=== PATIENT | male | born 1945 | race Caucasian/White ===

== ENCOUNTER 2019-08-11 09:10 | Day surgery (SDC) | payer MEDICARE, OTHER, SELFPAY ==
--- NOTE | 2019-08-11 | PATH_ITS ---
[facility] Accession Number: [id number] . 01 Material submitted: . PART A: cecum - CECUM POLYP PART B: colon - DESCENDING COLON POLYP . 02 Diagnosis: A. Cecum, Polyp: Tubular adenoma. . B. Descending Colon, Polyp: Tubular adenoma. MRV 08/12/2019 1010 Local . 02 Electronically signed: . Zach Eagle MD, PhD, Pathologist NPI- [id number] . 01 Gross description: . Part A: CECUM POLYP: Received in formalin is 1 fragment(s) of salomon, soft tissue measuring 0.3 x 0.2 x 0.2 cm submitted entirely in 1 cassette(s) Part B: DESCENDING COLON POLYP: Received in formalin is 1 fragment(s) of salomon, soft tissue measuring 0.6 x 0.3 x 0.3 cm submitted entirely in 1 cassette(s) /[facility] [place]/11/2019 2042 Local . 02 Pathologist provided ICD-10: D12.0, D12.4 . 02 CPT . 469900, 080838 Performed at: 01 [facility] [address], [place], [place] [id number] MD Ronen Meyer MD Phone: [phone] Performed at: 02 [facility] [address] [place], [place] [id number] MD Carmela Moran MD Phone: [phone]
[2019-08-11 10:04] VITALS: BP 135/84; PULSE 80; RESP 15; TEMP 36.3; O2SAT 96; BMI 25.8
[2019-08-11] MEDS: SODIUM CHLORIDE 0.9% 1,000 ML 200 ML IV (10:10)
--- NOTE | 2019-08-11 10:37 | PM.HP.1 ---
History of Present Illness History of Present Illness Chief complaint: [id number] Patient History Family & Social History Social History: household members none Tobacco & Substance use: Smoking Status Never smoker alcohol intake current alcohol intake frequency 0-2 drinks per day Substance Use Type does not use Meds Home Medications and Allergies Home Medications Medication Instructions Recorded Confirmed Type allopurinol 300 mg PO DAILY 08/11/19 08/11/19 History levothyroxine [Synthroid] 125 mcg PO DAILY 08/11/19 08/11/19 History rosuvastatin [Crestor] 5 mg PO Q3-4D 08/11/19 08/11/19 History terazosin 5 mg PO BEDTIME 08/11/19 08/11/19 History Allergies Allergy/AdvReac Type Severity Reaction Status Date / Time lisinopril Allergy Rash Verified 08/11/19 10:02 Sulfa (Sulfonamide Allergy Rash Verified 08/11/19 10:02 Antibiotics) Review of Systems Review of Systems ROS: Yes All systems reviewed with the patient and are negative except as otherwise documented Exam Vital Signs (past 8 hours): - 08/11/19 10:04 Temperature 97.4 F L Pulse Rate 80 Respiratory Rate 15 Blood Pressure 135/84 Pulse Oximetry 96 Oxygen Delivery Method Room Air Narrative Exam Narrative: Awake alert and oriented x3, pupils equal round reactive to light, oropharynx clear, heart regular rate and rhythm, lungs clear to auscultation bilaterally, abdomen nontender and nondistended, no gross neurologic deficits noted Assessment & Plan Assessment & Plan narrative: History of colon polyps, colon cancer screening, for colonoscopy today
[2019-08-11] MEDS: MIDAZOLAM 5 MG/ML VIAL IV (10:45)
[2019-08-11] MEDS: fentaNYL 250 MCG/5 ML INJ IV (10:46)
--- NOTE | 2019-08-11 11:12 | PM.OP.ENDO ---
Operative Date/Time/Diagnoses Date of procedure: 08/11/19 Procedure & Clinicians Study performed: Colonoscopy with cold snare polypectomy Moderate conscious sedation was administered by the endoscopy nurse and supervised by the endoscopist. The following parameters were monitored: Oxygen saturation, heart rate, blood pressure, and response to care. Sedation totals: 4 mg midazolam, 100 mcg fentanyl Indications: Personal history of colon polyps. Colon cancer screening Procedure Notes Procedure in detail: Prior to the procedure, history and physical was performed, and patient medications and allergies were reviewed. Preprocedure nursing history and assessment was reviewed. Patient identification and proposed procedure were verified by the physician and nurse in the procedure room. The physical status of the patient was reassessed after the procedure. After informed consent was obtained including risks, benefits, and alternatives, the scope was passed under direct vision. Throughout the procedure, the patient's blood pressure, pulse, and oxygen saturations were monitored continuously. The colonoscope was introduced through the anus and advanced to the cecum as identified by the appendiceal orifice and ileocecal valve. The patient tolerated the procedure well. Bowel prep was deemed adequate to detect polyps greater than 5 mm. Perianal and digital rectal examinations were unremarkable. Retroflexion in the rectum was unrevealing Scattered medium-sized diverticuli were noted in the sigmoid colon. Two 5 mm sessile polyps were noted in the cecum and descending colon, respectively. These were removed with a cold snare and retrieved. Impression: Sigmoid colon diverticulosis Two 5 mm polyps removed from the cecum and descending colon Sedation minutes: 23 Complications: other (EBL minimal. No complications) Post-procedure Plan for aftercare: Follow-up pathology results Repeat colonoscopy in 5 years for screening purposes Resume home medications High fiber diet Patient has a contact number available for emergencies. The signs and symptoms of potential delayed complications were discussed with the patient. Return to normal activities tomorrow. Written discharge instructions were provided to the patient. Discharge home with escort
[2019-08-11 11:13] VITALS: BP 108/75; PULSE 76; RESP 16; TEMP 36.4; O2SAT 96
[2019-08-11 11:18] VITALS: BP 117/83; PULSE 93; RESP 15; O2SAT 97
[2019-08-11 11:22] VITALS: BP 131/89; PULSE 86; RESP 11; O2SAT 96
[2019-08-11 11:35] VITALS: BP 124/84; PULSE 72; RESP 16; TEMP 36.5; O2SAT 96
== END 2019-08-11 11:50 | disposition home or self-care (01) ==
PROVIDERS: Referring Provider Internal Medicine; Visit Provider Internal Medicine
PROC: 0DJD8ZZ Inspection of Lower Intestinal Tract, Via Natural or Artificial Opening Endoscopic (ICD-10-PCS; CPT 45378; principal; 2019-08-11 11:00)
DX: Z12.11 Encounter for screening for malignant neoplasm of colon (principal); Z86.010 Personal history of colon polyps; K57.30 Diverticulosis of large intestine without perforation or abscess without bleeding; D12.0 Benign neoplasm of cecum; D12.4 Benign neoplasm of descending colon
CPT/HCPCS: 45385; J2250; J3010

== ENCOUNTER → 2020-04-21 13:14 | Outpatient (CLI) | payer MEDICARE, OTHER, SELFPAY ==
[2020-04-22 06:57] LABS: Homocysteine 18.4 umol/L (0.0-19.2)
== END ==
PROVIDERS: Referring Provider Ophthalmology; Visit Provider Ophthalmology
DX: H27 Other disorders of lens (principal); I10 Essential (primary) hypertension
CPT/HCPCS: 36415; 83090

== ENCOUNTER → 2021-01-22 17:15 | Outpatient (CLI) | payer MEDICARE, OTHER, SELFPAY ==
--- NOTE | 2021-01-22 | DI.MRI.S_ITS ---
PROCEDURE: MR HAND RT WO CON INDICATIONS: right thumb strain TECHNIQUE: Noncontrast oblique coronal T1 spin echo and T2 fast spin echo with fat saturation, axial and sagittal T2 fast spin echo with fat saturation, through the thumb. COMPARISON: [facility], CR, XR HAND 3+ VIEWS RIGHT, 11/08/2019, 8:40. [facility] [place], CR, XR FINGER(S) RIGHT, 01/15/2021, 15:17. FINDINGS: Image quality: Excellent. Bones: No acute trabecular bone injury. Severe degenerative changes are seen at the 1st carpometacarpal joint with full-thickness cartilage loss, subchondral cystic changes that are more prominent on the metacarpal side of the joint, and subchondral edema as well as marginal osteophyte formation. Moderate degenerative changes are seen in the 1st metacarpophalangeal joint with eccentric joint space narrowing, subchondral cystic changes, and marginal osteophyte formation. There is moderate to severe osteoarthrosis at the 1st interphalangeal joint with full-thickness cartilage loss, subchondral cystic changes, and marginal osteophyte formation as well as mild chronic medial subluxation of the distal phalanx. Soft tissues: Mildly increased signal is seen within the ulnar collateral ligament at the 1st metacarpophalangeal joint without discontinuity of fibers, which may represent a prior sprain or mild chronic degeneration. Similar findings are seen at the volar plate without definite discontinuity of fibers. The extensor pollicis brevis insertion is intact. At the 1st interphalangeal joint, there is increased signal intensity within the radial and ulnar collateral ligaments without a high-grade tear. The flexor pollicis longus tendon insertion is intact. There is trace edema at the dorsal aspect of the thumb in fluid surrounding the distal extensor pollicis longus tendon that is suspicious for tenosynovitis. A small amount of fluid is seen tracking along the flexor pollicis longus tendon at the level of the thenar musculature and proximal phalanx, compatible with mild tenosynovitis. There is also mild tenosynovitis involving the 2nd flexor tendons. The muscles of the hand are normal in bulk. The included carpal tunnel contents appear normal. IMPRESSION: 1. 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 2. Increased signal within multiple ligaments in the thumb without discontinuity of fibers or surrounding edema, including the ulnar collateral ligament and the volar plate at the metacarpophalangeal joint, and the radial and ulnar collateral ligaments at the distal interphalangeal joint. Findings likely represent chronic intrasubstance degeneration and/or chronic low-grade sprains. No full-thickness ligament tear is seen. 3. Mild tenosynovitis of the flexor pollicis longus tendon as well as the 2nd superficial and deep flexor tendons. 4. Mild tenosynovitis of the extensor pollicis longus tendon at its insertion. Dictated by: Royce Kirby M.D. on 01/23/2021 at 16:47 Approved by: Royce Kirby M.D. on 01/23/2021 at 17:00
== END ==
PROVIDERS: Referring Provider Orthopaedic Surgery; Visit Provider Orthopaedic Surgery
DX: S66.811A Strain of other specified muscles, fascia and tendons at wrist and hand level, right hand, initial encounter (principal); M18.11 Unilateral primary osteoarthritis of first carpometacarpal joint, right hand; M19.041 Primary osteoarthritis, right hand; M65.841 Other synovitis and tenosynovitis, right hand; X58.XXXA Exposure to other specified factors, initial encounter
CPT/HCPCS: 73218

== ENCOUNTER → 2021-03-21 08:28 | Outpatient (CLI) | payer MEDICARE, OTHER, SELFPAY ==
[2021-03-21 13:31] LABS: COVID19 -Nasal RAPID Negative (Negative)
== END ==
PROVIDERS: Visit Provider Physician Assistant
DX: Z20.822 Contact with and (suspected) exposure to COVID-19 (principal); Z01.812 Encounter for preprocedural laboratory examination
CPT/HCPCS: 87635; C9803

== ENCOUNTER → 2021-03-22 12:03 | Day surgery (SDC) | payer MEDICARE, OTHER, SELFPAY ==
[2021-03-19 07:58] VITALS: BMI 25.8
[2021-03-22] VITALS (7 sets, daily range): BP systolic 101–128; BP diastolic 60–79; PULSE 74–83; RESP 11–18; TEMP 36.4–36.9; O2SAT 95–97; BMI 25.8
[2021-03-22] MEDS: LACTATED RINGERS 1,000 ML 42 ML IV (13:04)
--- NOTE | 2021-03-22 13:30 | PM.HP.1 ---
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 Patient History Medical History Gout HLD (hyperlipidemia) HTN (hypertension) Hypothyroid Surgical History History of knee replacement Hx of shoulder surgery Family & Social History Social History: household members spouse,none Tobacco & Substance use: Smoking Status Never smoker alcohol intake current alcohol intake frequency 0-2 drinks per day Substance Use Type does not use Meds Home Medications and Allergies Home Medications Medication Instructions Recorded Confirmed Type allopurinol 300 mg tablet 300 mg PO DAILY 08/11/19 03/22/21 History levothyroxine 125 mcg tablet 125 mcg PO DAILY 08/11/19 03/22/21 History (Synthroid) terazosin 5 mg capsule 5 mg PO BEDTIME 08/11/19 03/22/21 History Allergies Allergy/AdvReac Type Severity Reaction Status Date / Time lisinopril Allergy Rash Verified 03/22/21 12:27 Sulfa (Sulfonamide Allergy Rash Verified 03/22/21 12:27 Antibiotics) Exam Vital Signs (past 8 hours): - 03/22/21 12:33 Temperature 98.3 F Pulse Rate 83 Respiratory Rate 18 Blood Pressure 124/79 Pulse Oximetry 97 Oxygen Delivery Method Room Air Assessment & Plan Time Spent With Patient Critical Care time: I spent a total of [] minutes of critical care time on this patient's care today; this time is exclusive of procedural time.
--- NOTE | 2021-03-22 13:38 | PM.HP.1 ---
History of Present Illness History of Present Illness Date Patient Seen: 03/22/21 Time Patient Seen: 13:39 Chief complaint: SDC Narrative: Chronic injury to the right thumb MCP joint resulting in a ulnar collateral ligament rupture Patient History Medical History Gout HLD (hyperlipidemia) HTN (hypertension) Hypothyroid Surgical History History of knee replacement Hx of shoulder surgery Family & Social History Social History: household members spouse,none Tobacco & Substance use: Smoking Status Never smoker alcohol intake current alcohol intake frequency 0-2 drinks per day Substance Use Type does not use Meds Home Medications and Allergies Home Medications Medication Instructions Recorded Confirmed Type allopurinol 300 mg tablet 300 mg PO DAILY 08/11/19 03/22/21 History levothyroxine 125 mcg tablet 125 mcg PO DAILY 08/11/19 03/22/21 History (Synthroid) terazosin 5 mg capsule 5 mg PO BEDTIME 08/11/19 03/22/21 History Allergies Allergy/AdvReac Type Severity Reaction Status Date / Time lisinopril Allergy Rash Verified 03/22/21 12:27 Sulfa (Sulfonamide Allergy Rash Verified 03/22/21 12:27 Antibiotics) Exam Vital Signs (past 8 hours): - 03/22/21 12:33 Temperature 98.3 F Pulse Rate 83 Respiratory Rate 18 Blood Pressure 124/79 Pulse Oximetry 97 Oxygen Delivery Method Room Air Narrative Exam Narrative: Instability to the right thumb MCP joint due to a chronically insufficient ulnar collateral ligament. Range of motion of the MCP joint as well as basal joint in flexion as well as extension. Assessment & Plan Assessment & Plan narrative: Patient with a chronically injured right thumb ulnar collateral ligament. Due to this fact patient is interested in a ulnar collateral ligament reconstruction. All of his questions and concerns are answered to his full satisfaction. The risk, benefits, alternatives, possible complications, operative course, and postop outcomes were discussed. Complications including but not limiting to bleeding, infection, fracture, nerve injury, continued pain postoperatively or instability postoperatively were discussed in detail. Medical complications including but not limited to deep venous thrombosis event, anesthesia complications with excessive bleeding, vascular events or cardiac events and other possible complications were discussed in detail. Need for postoperative rehabilitation and anticipated hospital stay and clinical course were discussed in detail. Patient acknowledges understanding and elects to proceed with surgery. Time Spent With Patient Critical Care time: I spent a total of [] minutes of critical care time on this patient's care today; this time is exclusive of procedural time.
--- NOTE | 2021-03-22 13:40 | PM.PREOP ---
Pre-operative Note Interval Note History & Physical reviewed/Exam performed by Physician: Yes Changes to H&P: No
[2021-03-22] MEDS: CEFAZOLIN 1 GM VIAL 2 GM IV (14:37)
[2021-03-22] MEDS: EPINEPHrine 1 MG/ML SUBCUT (14:53)
[2021-03-22] MEDS: BUPIVACAINE 0.5% (PF) VIAL 30 ML INJ (14:56)
--- NOTE | 2021-03-22 15:03 | SUR.OPER ---
Supine on padded OR bed, head on pillow, left arm secured on padded arm boards at <90 degrees abduction,right arm draped free on black hand table, legs uncrossed, safety belt at thigh, tape over blanket over lower legs.
--- NOTE | 2021-03-22 15:28 | PM.OP.1 ---
Operative Date/Time/Diagnoses Date of procedure: 03/22/21 Time of procedure: 14:45 Pre-op diagnosis: Right thumb ulnar collateral ligament injury Post-op diagnosis: same Procedure & Clinicians Procedure: Ulnar collateral ligament repair with augmentation with suture material to help reconstruct the ligament. 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 Closure Type: primary Specimen(s): none sent Applied: implant(s) (Three anchors. Two in the proximal phalanx 1 in the metacarpal.) Procedure in detail: On date of Service, patient was met in the holding area where his operative site was signed and witnessed by the OR staff. The surgery is once again discussed with the patient in remaining questions or concerns he had were answered to his full satisfaction. Patient was taken back to the operating theater and placed on the operating table in a supine position. Great care was taken to ensure that all bony prominences were appropriately padded. Well-padded tourniquet was placed up along the upper extremity and a time-out was performed verifying patient's name, procedure and operative site. The upper extremity was prepped and draped in the normal sterile fashion. And Esmarch was used to exsanguinate the limb and the tourniquet was turned up to 250 mmHg. Curvilinear incision was made centered over the ulnar aspect of the MCP joint. A 15 blade was used incise the skin and fascial tissue. Bipolar electrocautery was used to achieve hemostasis. Deep knife was then used to continued sharp dissection and the aponeurosis was split giving us a good visualization of the ulnar collateral ligament. Quite a bit of thinning at the attachment at the proximal phalanx but not a complete rupture. Signs of some pseudo tendinous material. This was sharply dissected free of the proximal phalanx in the thinner more unhealthy tissue was sharply excised. Next, corkscrew anchor was placed in the proximal phalanx that had 2.0 FiberWire suture. This was used to repair the ulnar collateral ligament back down to the proximal phalanx. This helped improve the laxity that due to the chronic nature and felt like it needed to be reinforced. Two drill holes were made 1 in the proximal phalanx 1 in the metacarpal. Suture material was tenodesed 1st in the metacarpal brought across the joint and then tenodesed in the proximal phalanx under tension. This help secure the ulnar collateral ligament tissue onto the proximal phalanx as well as provide additional support to the ligament. This got rid of the excess laxity to the MCP joint and help stabilize the joint. The wound was then copiously irrigated. Aponeurosis was closed in the rest of the wound was closed in a layered fashion. The hand was cleaned, dried, and dressed and patient was placed into a splint. Complications: none Post-operative Condition: stable Disposition: PACU Plan for aftercare: Patient will be immobilized for 2 weeks. Then he will be converted over to a hand based splint.
== END | disposition home or self-care (01) ==
PROVIDERS: Referring Provider Orthopaedic Surgery; Visit Provider Orthopaedic Surgery
PROC: (CPT 26540; principal; 2021-03-22 13:45)
DX: S63.641A Sprain of metacarpophalangeal joint of right thumb, initial encounter (principal); M18.11 Unilateral primary osteoarthritis of first carpometacarpal joint, right hand; I10 Essential (primary) hypertension
CPT/HCPCS: 26540; J0171; J0690; J1100; J2250; J2405; J2704; J3010

== ENCOUNTER → 2021-04-30 15:37 | Outpatient (CLI) | payer MEDICARE, OTHER, SELFPAY | PROVIDERS: Referring Provider Internal Medicine; Visit Provider Internal Medicine | DX: E06.3 Autoimmune thyroiditis (principal) | CPT/HCPCS: 36415; 84443 ==

== ENCOUNTER → 2021-06-26 09:22 | Outpatient (CLI) | payer MEDICARE, OTHER, SELFPAY ==
--- NOTE | 2021-06-26 | DI.MRI.S_ITS ---
PROCEDURE: MR HIP RT WO CON INDICATIONS: Idiopathic aseptic necrosis of unspecified bone TECHNIQUE: Noncontrast coronal T1 spin echo and STIR through the bony pelvis. Coronal and axial T2 fast spin echo with fat saturation, sagittal T1 spin echo, and oblique axial T2 fast spin echo with fat saturation through the hip. COMPARISON: [facility], CR, XR PELVIS WITH LATERAL HIP RIGHT, 05/23/2021, 10:04. FINDINGS: Image quality: Excellent. Bones and joints: Mild periarticular osteophyte formation at the bilateral hip joints. Bone marrow of the pelvic ring and proximal femurs show normal signal throughout. There is geographic curvilinear low T1 signal intensity involving the anterior aspect of the right femoral head, spanning roughly 15 mm. The visualized lower lumbar spine appears normally aligned. Tendons and ligaments: The gluteus medius and minimus tendons appear intact, without associated muscle atrophy. The nearby proximal iliotibial band also appears intact. The iliopsoas tendon appears intact, without adjacent bursal fluid collections or evidence for impingement syndrome. The origin of the hamstring tendon is intact at the ischial tuberosity, as well as the associated sacrotuberous ligament. The straight and reflected heads of the rectus femoris muscle origin appear intact, as well as the conjoint tendon. The ligamentum teres appears intact where visualized. Labrum and cartilage: The acetabular labrum demonstrates diffuse fraying. Cartilage surface of the femoral head appears of normal thickness. The alpha angle of the femur is within normal limits at less than 55 degrees. Soft tissues: Visualized muscles demonstrate normal bulk and internal signal. Quadratus femoris muscle demonstrates no internal edema to suggest ischiofemoral impingement. The proximal sciatic neurovascular bundle appears normal adjacent to the hamstring tendons. No free pelvic fluid. Bladder wall thickness is normal. Genitourinary structures and bowel loops appear normal where visualized. IMPRESSION: 1. 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 2. Bilateral hip osteoarthritis. 3. Degenerative tearing of right hip labrum. 4. No fracture or osseous lesion. Dictated by: Tatiana Live M.D. on 06/26/2021 at 13:32 Approved by: Tatiana Live M.D. on 06/26/2021 at 13:39
== END ==
PROVIDERS: Referring Provider Orthopaedic Surgery; Visit Provider Orthopaedic Surgery
DX: M87.851 Other osteonecrosis, right femur (principal); M16.0 Bilateral primary osteoarthritis of hip; S73.101A Unspecified sprain of right hip, initial encounter
CPT/HCPCS: 73721

== ENCOUNTER → 2021-10-23 07:53 | Outpatient (CLI) | payer MEDICARE, OTHER, SELFPAY ==
[2021-10-23 09:56] LABS: Add Manual Diff / Slide Review NO; Basophils Absolute Auto 0 /uL (0-100); Basophils Percent Auto 0.6 % (0-2); Eosinophils Absolute Auto 100 /uL (0-450); Eosinophils Percent Auto 2.7 % (2-4); Hematocrit 46.7 % (41-53); Hemoglobin 15.8 g/dL (13.5-17.5); Lymphocytes Absolute Auto 1400 /uL (1100-4500); Lymphocytes Percent Auto 26.8 % (25-40); Mean Corpuscular HGB Conc 33.9 % (30-36); Mean Corpuscular Hemoglobin 32.3 PG (26-34); Mean Corpuscular Volume 95.2 fL (80-100); Monocytes Absolute Auto 500 /uL (0-900); Monocytes Percent Auto 10.4 % (3-14); Neutrophils Absolute Auto 3000 /uL (1500-7000); Neutrophils Percent Auto 59.5 % (50-75); Platelet Count 180 X10^3/uL (150-400); Red Cell Distribution Width 15.6 % (11.6-14.8); White Blood Cell Count 5.1 X10^3/uL (4.5-11.0)
[2021-10-23 10:12] LABS: Erythrocyte Sedimentation Rate 1 MM/HR (0-15)
[2021-10-23 10:39] LABS: Alanine Aminotransferase 28 IU/L (<50); Albumin 3.7 g/dL (3.5-5.0); Albumin Globulin Ratio 1.3 (1.0-2.8); Alkaline Phosphatase 76 U/L (38-126); Aspartate Aminotransferase 33 IU/L (17-59); BUN Creatinine Ratio 16.5 (6-22); Bilirubin Total 0.9 mg/dL (0.2-1.3); Blood Urea Nitrogen 16 mg/dL (9-20); C-Reactive Protein Quant < 0.5 mg/dL (<1.0); Carbon Dioxide 29 mmol/L (22-32); Chloride 104 mmol/L (98-107); Cholesterol 171 mg/dL (140-199); Estimated Glomerular Filt Rate > 60 mL/min (>60); Globulin 2.8 g/dL (1.7-4.1); Glucose 95 mg/dL (80-110); HDL Cholesterol 72 mg/dL (40-60); HEMOLYSIS < 15 (0-50); LDL Cholesterol Calculated 87 mg/dL (<100); Potassium 4.1 mmol/L (3.4-5.1); Sodium 139 mmol/L (137-145); Total Protein 6.5 g/dL (6.3-8.2); Triglycerides 58 mg/dL (35-150); Uric Acid 3.8 mg/dL (3.5-8.5)
[2021-10-23 10:44] LABS: Free T4, Direct Thyroxine 1.29 ng/dL (0.78-2.19); Rheumatoid Factor < 8.6 IU/mL (<12.0)
[2021-10-23 10:58] LABS: Thyroid Stimulating Hormone 2.36 uIU/mL (0.47-4.68)
[2021-10-26 14:52] LABS: ANA Screen, IFA Negative (.)
[2021-11-01 13:11] LABS: Percent Free Testosterone 2.79 % (1.50-4.20); Testosterone Free 8.63 ng/dL (5.00-21.00); Testosterone Total 309.3 ng/dL (264.0-916.0)
== END ==
PROVIDERS: PCP Internal Medicine; Referring Provider Internal Medicine; Visit Provider Internal Medicine
DX: L40.50 Arthropathic psoriasis, unspecified (principal); Z12.5 Encounter for screening for malignant neoplasm of prostate; M1A.9XX0 Chronic gout, unspecified, without tophus (tophi); M25.50 Pain in unspecified joint; E03.9 Hypothyroidism, unspecified; E29.1 Testicular hypofunction; I10 Essential (primary) hypertension
CPT/HCPCS: 36415; 80053; 80061; 84402; 84403; 84439; 84443; 84550; 85025; 85651; 86038; 86140; 86430; G0103

== ENCOUNTER → 2021-10-25 15:54 | Outpatient (CLI) | payer MEDICARE, OTHER, SELFPAY ==
--- NOTE | 2021-10-25 | DI.MRI.S_ITS ---
PROCEDURE: MR WRIST RT WO CON INDICATIONS: Pain in right wrist TECHNIQUE: Noncontrast coronal proton density fast spin echo and T2 fast spin echo with fat saturation; coronal 3-D gradient echo, axial T1 spin echo and T2 fast spin echo with fat saturation, sagittal T1 spin echo through the wrist. COMPARISON: [facility], MR, MR HAND RT WO CON, 01/22/2021, 17:21. FINDINGS: Image quality: Excellent. Bones and cartilage: Moderate osteoarthritic changes throughout wrist joints are seen with joint space narrowing, subchondral sclerosis and mild edema most prominent involving radiocarpal, ulnar carpal and 1st CMC joints. Subcortical cystic areas also seen in distal radius, ulnar, triquetrum, proximal capitate and lunate as well as 1st metacarpal base. No fracture or dislocation. No evidence of osteonecrosis. Carpal ligaments: The scapholunate and lunotriquetral ligaments appear intact. In the absence of intra-articular contrast, the extrinsic carpal ligaments are not well identified. On sagittal images, the pisohamate ligament appears intact. Triangular fibrocartilage complex: There is suggestion of complex tear involving triangular fibrocartilage near its radial insertion. Thickened extensor carpi ulnaris tendon with intrasubstance T2 hyperintense signal is seen at the level of ulnar styloid and triquetrum suggestive of tendinosis and moderate grade intrasubstance partial-thickness tear. Tendons and soft tissues: Attenuated appearance of the extensor pollicis longus tendon at the level of proximal carpal Road is seen concerning for tendinosis and low to moderate grade partial-thickness tear. The carpal tunnel structures appear normal, including the median nerve. The ulnar nerve appears normal within Guyon's canal. Rest of the extensor tendon compartments demonstrate normal morphology, without pathologic tendon sheath fluid. No soft tissue ganglion cysts. IMPRESSION: 1. 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 No fracture or dislocation. No evidence of osteonecrosis. Subcortical cystic changes in carpal bones and distal radius and ulnar, erosion secondary to inflammatory arthropathy cannot be excluded. 2. Intrinsic and extrinsic wrist ligaments are grossly intact. 3. Suggestion of triangular fibrocartilage tear near its radial insertion. 4. Tendinosis and moderate grade intrasubstance partial-thickness tear involving extensor carpi ulnaris tendon at the level of ulnar styloid and triquetrum. Suggestion of low-grade partial-thickness tear involving extensor pollicis longus tendon at the level of distal radius/proximal carpal row. Dictated by: Jose C Senior M.D. on 10/26/2021 at 9:38 Approved by: Jose C Senior M.D. on 10/26/2021 at 10:58
== END ==
PROVIDERS: PCP Internal Medicine; Referring Provider Internal Medicine Rheumatology; Visit Provider Internal Medicine Rheumatology
DX: S66.811A Strain of other specified muscles, fascia and tendons at wrist and hand level, right hand, initial encounter (principal); M19.031 Primary osteoarthritis, right wrist; M25.531 Pain in right wrist
CPT/HCPCS: 73221

== ENCOUNTER → 2021-12-27 09:26 | Outpatient (CLI) | payer MEDICARE, OTHER, SELFPAY ==
--- NOTE | 2021-12-27 09:31 | DI.RAD.S_ITS ---
PROCEDURE: XR KNEE RT 3V INDICATIONS: PAIN TECHNIQUE: 3 views of the knee were acquired. COMPARISON: None. FINDINGS: Bones: No fractures or dislocations. No suspicious bony lesions. Mild to moderate medial compartment osteoarthritic degenerative change with slight joint space narrowing. Mild lateral and patellofemoral compartment osteoarthritis. Large superior patellar bone spur. Soft tissues: No joint effusion. No suspicious soft tissue calcifications. IMPRESSION: Right knee tricompartmental osteoarthritis as described above. Dictated by: Marguerite Lynch MD, PhD on 12/27/2021 at 14:15 Approved by: Marguerite Lynch MD, PhD on 12/27/2021 at 14:16
--- NOTE | 2021-12-27 09:31 | DI.RAD.S_ITS ---
PROCEDURE: XR KNEE LT 3V INDICATIONS: PAIN TECHNIQUE: 3 views of the knee were acquired. COMPARISON: None. FINDINGS: Bones: No fractures or dislocations. No suspicious bony lesions. Moderate medial compartment osteoarthritic degenerative changes with joint space narrowing. Mild lateral and patellofemoral compartment osteoarthritis. A large superior patellar bone spur. Soft tissues: No joint effusion. No suspicious soft tissue calcifications. IMPRESSION: Left knee tricompartmental osteoarthritis as described above. Dictated by: Marguerite Lynch MD, PhD on 12/27/2021 at 14:14 Approved by: Marguerite Lynch MD, PhD on 12/27/2021 at 14:15
== END ==
PROVIDERS: PCP Internal Medicine; Referring Provider Internal Medicine Rheumatology; Visit Provider Internal Medicine Rheumatology
DX: M17.0 Bilateral primary osteoarthritis of knee; M25.561 Pain in right knee; M25.562 Pain in left knee; Z13.820 Encounter for screening for osteoporosis; Z92.241 Personal history of systemic steroid therapy
CPT/HCPCS: 73562; 77080

== ENCOUNTER → 2022-06-27 13:15 | Outpatient (CLI) | payer MEDICARE, OTHER, SELFPAY ==
--- NOTE | 2022-06-27 13:17 | DI.RAD.S_ITS ---
PROCEDURE: XR CHEST 2V INDICATIONS: cough TECHNIQUE: 2 views of the chest were acquired. COMPARISON: None. FINDINGS: Surgical changes and devices: None. Lungs and pleura: Mildly increased bronchovascular markings in bilateral hilar region are seen. No definite focal infiltrate. No pleural effusions or pneumothorax. Mediastinum: Mediastinal contours are normal. Heart size is normal. Bones and chest wall: No suspicious bony abnormalities. Soft tissues appear unremarkable. IMPRESSION: Finding may represent mild reactive airway disease. No definite focal infiltrate, pleural effusion or pneumothorax. Dictated by: Jose C Senior M.D. on 06/27/2022 at 15:58 Approved by: Jose C Senior M.D. on 06/27/2022 at 16:01
== END ==
PROVIDERS: PCP Internal Medicine; Referring Provider Internal Medicine; Visit Provider Internal Medicine
DX: R05.9 Cough, unspecified (principal)
CPT/HCPCS: 71046

== ENCOUNTER → 2022-07-10 09:40 | Outpatient (CLI) | payer MEDICARE, OTHER, SELFPAY ==
[2022-07-10 10:19] LABS: COVID19 -Nasal RAPID Negative (Negative)
== END ==
PROVIDERS: PCP Internal Medicine; Referring Provider Internal Medicine; Visit Provider Internal Medicine
DX: Z20.822 Contact with and (suspected) exposure to COVID-19 (principal)
CPT/HCPCS: 87635; C9803

== ENCOUNTER → 2022-07-11 08:27 | Outpatient (CLI) | payer MEDICARE, OTHER, SELFPAY ==
--- NOTE | 2022-07-17 09:41 | PM.PFT.1 ---
Pulmonary Function Test Referral & Results Date Patient Seen: 07/11/22 Requesting provider: Deondre Santos Results: The spirometry demonstrates an FVC of 4.03 L which is 104% of predicted. The FEV1 was measured at 2.99 L which is 107% of predicted. The FEV1/FVC ratio was 74 which is 103% of predicted. Following the administration of bronchodilator there was a 50% improvement in FEF 25-75%. Lung volumes show an SVC of 4.04 L which is 96% of predicted. The diffusing capacity was measured at 27.39 which is 92% of predicted. The maximum voluntary ventilation was minimally reduced Interpretation: This study demonstrates normal spirometry and diffusing capacity. The maximum voluntary ventilation, if real, maybe minimally reduced which in the absence of abnormalities of spirometry suggest the possibility of neuromuscular disease, although would be quite mild if present Clinical correlation suggested
== END ==
PROVIDERS: PCP Internal Medicine; Referring Provider Internal Medicine; Visit Provider Internal Medicine
DX: R05.9 Cough, unspecified (principal); U09.9 Post COVID-19 condition, unspecified; R05.3 Chronic cough; J98.8 Other specified respiratory disorders
CPT/HCPCS: 94060; 94726; 94729

== ENCOUNTER → 2022-11-05 08:32 | Outpatient (CLI) | payer MEDICARE, OTHER, SELFPAY ==
[2022-11-05 09:31] LABS: Add Manual Diff / Slide Review NO; Basophils Absolute Auto 0 /uL (0-100); Basophils Percent Auto 0.7 % (0-2); Eosinophils Absolute Auto 200 /uL (0-450); Eosinophils Percent Auto 4.8 % (2-4); Hemoglobin 15.2 g/dL (13.5-17.5); Lymphocytes Absolute Auto 1300 /uL (1100-4500); Lymphocytes Percent Auto 27.7 % (25-40); Mean Corpuscular HGB Conc 33.7 % (30-36); Mean Corpuscular Hemoglobin 32.4 PG (26-34); Mean Corpuscular Volume 96.4 fL (80-100); Monocytes Absolute Auto 500 /uL (0-900); Monocytes Percent Auto 11.3 % (3-14); Neutrophils Absolute Auto 2700 /uL (1500-7000); Neutrophils Percent Auto 55.5 % (50-75); Platelet Count 217 X10^3/uL (150-400); Red Blood Cell Count 4.67 X10^6/uL (4.5-5.9); Red Cell Distribution Width 14.6 % (11.6-14.8); White Blood Cell Count 4.9 X10^3/uL (4.5-11.0)
[2022-11-05 09:45] LABS: Alanine Aminotransferase 31 IU/L (<50); Albumin Globulin Ratio 1.3 (1.0-2.8); Alkaline Phosphatase 77 U/L (38-126); Aspartate Aminotransferase 31 IU/L (17-59); BUN Creatinine Ratio 17.7 (6-22); Bilirubin Total 0.9 mg/dL (0.2-1.3); Blood Urea Nitrogen 17 mg/dL (9-20); Calcium 9.1 mg/dL (8.4-10.2); Carbon Dioxide 28 mmol/L (22-32); Chloride 102 mmol/L (98-107); Cholesterol 183 mg/dL (140-199); Estimated Glomerular Filt Rate > 60 mL/min (>60); Globulin 3.2 g/dL (1.7-4.1); Glucose 89 mg/dL (80-110); HDL Cholesterol 48 mg/dL (40-60); HEMOLYSIS < 15 (0-50); LDL Cholesterol Calculated 110 mg/dL (<100); Potassium 4.7 mmol/L (3.4-5.1); Sodium 135 mmol/L (137-145); Total Protein 7.2 g/dL (6.3-8.2); Triglycerides 125 mg/dL (35-150); Uric Acid 4.3 mg/dL (3.5-8.5)
[2022-11-05 09:48] LABS: Rheumatoid Factor < 8.6 IU/mL (<12.0)
[2022-11-05 10:06] LABS: Free T4, Direct Thyroxine 1.08 ng/dL (0.78-2.19)
[2022-11-05 10:09] LABS: Erythrocyte Sedimentation Rate 1 MM/HR (0-15)
[2022-11-05 10:13] LABS: Prostate Specific Antigen Scrn 1.68 ng/mL (0.1-4.0)
[2022-11-05 10:19] LABS: Thyroid Stimulating Hormone 1.73 uIU/mL (0.47-4.68)
[2022-11-10 18:22] LABS: ANA Screen, IFA Negative (.)
[2022-11-15 13:10] LABS: Testosterone % Fr + Wkly bound 30.8 % (9.0-46.0); Testosterone Fr+Wkly bound 185.3 ng/dL (40.0-250.0); Testosterone, Total 601.7 ng/dL (264.0-916.0)
== END ==
PROVIDERS: PCP Internal Medicine; Referring Provider Internal Medicine; Visit Provider Internal Medicine
DX: E03.9 Hypothyroidism, unspecified (principal); Z12.5 Encounter for screening for malignant neoplasm of prostate; E29.1 Testicular hypofunction; E78.2 Mixed hyperlipidemia; I10 Essential (primary) hypertension; M06.00 Rheumatoid arthritis without rheumatoid factor, unspecified site; M1A.9XX0 Chronic gout, unspecified, without tophus (tophi); M35.3 Polymyalgia rheumatica
CPT/HCPCS: 36415; 80053; 80061; 84403; 84439; 84443; 84550; 85025; 85651; 86038; 86430; G0103

== ENCOUNTER → 2023-04-16 12:41 | Outpatient (CLI) | payer MEDICARE, OTHER, SELFPAY ==
--- NOTE | 2023-04-16 12:51 | DI.RAD.S_ITS ---
PROCEDURE: XR WRIST LT MIN 3V INDICATIONS: POLYARTHRITHS TECHNIQUE: 3 views of the wrist were acquired. COMPARISON: [facility] [place], CR, XR HAND 3+ VIEWS BILATERAL, 12/23/2022, 11:14. [facility], MR, MR WRIST RT WO CON, 10/25/2021, 16:19. [facility], CR, XR WRIST RT MIN 3V, 04/16/2023, 13:01. FINDINGS: Bones: No fractures or dislocations. No suspicious bony lesions. Advanced degenerative arthritis of the 1st carpometacarpal joint. Radiocarpal degenerative change with joint space loss. Subchondral cyst formation present in the lunate and triquetrum. Soft tissues: No suspicious soft tissue calcifications. IMPRESSION: Advanced degenerative change at the base of the thumb. Radiocarpal joint degenerative change. Dictated by: Alli Foote M.D. on 04/16/2023 at 15:26 Approved by: Alli Foote M.D. on 04/16/2023 at 15:31
--- NOTE | 2023-04-16 12:51 | DI.RAD.S_ITS ---
PROCEDURE: XR WRIST RT MIN 3V INDICATIONS: POLYARTHRITHS TECHNIQUE: 3 views of the wrist were acquired. COMPARISON: [facility] [place], CR, XR FINGER(S) RIGHT, 01/15/2021, 15:17. [facility], MR, MR WRIST RT WO CON, 10/25/2021, 16:19. FINDINGS: Bones: No fractures or dislocations. No suspicious bony lesions. Postsurgical changes with a surgical screw at the base of the 1st proximal phalanx. Osteoarthritic changes, moderate at the radiocarpal joint, triscaphe joint, 1st carpal metabolic 2 joint and 1st metacarpophalangeal joint. Lucencies in the distal ulnar are compatible with subchondral cysts. Soft tissues: No suspicious soft tissue calcifications. IMPRESSION: Moderate osteoarthritic changes. Dictated by: Lynda Campos M.D. on 04/16/2023 at 14:32 Approved by: Lynda Campos M.D. on 04/16/2023 at 14:34
--- NOTE | 2023-04-16 12:51 | DI.RAD.S_ITS ---
PROCEDURE: XR HAND LT MIN 3V INDICATIONS: POLYARTHRITHS TECHNIQUE: 3 views of the hand(s) acquired. COMPARISON: [facility], CR, XR HAND 3+ VIEWS LEFT, 11/08/2019, 8:38. [facility], CR, XR WRIST LT MIN 3V, 04/16/2023, 13:03. FINDINGS: Bones: No fractures or dislocations. Carpal bones are normally aligned. No suspicious bony lesions. Osteoarthritic changes are present, most pronounced and moderate at the 1st carpometacarpal joint, the 1st metacarpophalangeal joint and the 1st interphalangeal joint, and mild at the radiocarpal joint, triscaphe joint and multiple interphalangeal joints. Lucency in lunate is likely caused by an intraosseous cyst. Soft tissues: No suspicious soft tissue calcifications. IMPRESSION: Moderate osteoarthritic changes. Dictated by: Lynda Campos M.D. on 04/16/2023 at 14:34 Approved by: Lynda Campos M.D. on 04/16/2023 at 14:36
--- NOTE | 2023-04-16 12:51 | DI.RAD.S_ITS ---
PROCEDURE: XR HAND RT MIN 3V INDICATIONS: POLYARTHRITHS TECHNIQUE: 3 views of the hand(s) acquired. COMPARISON: [facility], CR, XR FINGER(S) RIGHT, 07/08/2019, 7:31. [facility] [place], CR, XR HAND 3+ VIEWS BILATERAL, 12/23/2022, 11:14. [facility], CR, XR WRIST RT MIN 3V, 04/16/2023, 13:01. FINDINGS: Bones: No fractures or dislocations. There is a surgical screw at the base of the 1st proximal phalanx. Carpal bones are normally aligned. No suspicious bony lesions. Osteoarthritic changes, most pronounced and moderate-severe at the 1st interphalangeal joint, and moderate at the 1st carpometacarpal joint, and mild in multiple interphalangeal joints. Soft tissues: No suspicious soft tissue calcifications. IMPRESSION: Jqubilcw-va-cbftau osteoarthritis. Dictated by: Lynda Campos M.D. on 04/16/2023 at 14:29 Approved by: Lynda Campos M.D. on 04/16/2023 at 14:32
[2023-04-16 14:55] LABS: Add Manual Diff / Slide Review NO; Basophils Absolute Auto 0 /uL (0-100); Basophils Percent Auto 0.6 % (0-2); Eosinophils Absolute Auto 100 /uL (0-450); Eosinophils Percent Auto 2.4 % (2-4); Hematocrit 46.5 % (41-53); Hemoglobin 15.6 g/dL (13.5-17.5); Lymphocytes Absolute Auto 1300 /uL (1100-4500); Lymphocytes Percent Auto 21.2 % (25-40); Mean Corpuscular HGB Conc 33.6 % (30-36); Mean Corpuscular Hemoglobin 32.7 PG (26-34); Mean Corpuscular Volume 97.4 fL (80-100); Monocytes Absolute Auto 600 /uL (0-900); Monocytes Percent Auto 9.2 % (3-14); Neutrophils Absolute Auto 4000 /uL (1500-7000); Neutrophils Percent Auto 66.6 % (50-75); Platelet Count 212 X10^3/uL (150-400); Red Blood Cell Count 4.77 X10^6/uL (4.5-5.9); Red Cell Distribution Width 14.2 % (11.6-14.8); White Blood Cell Count 6.1 X10^3/uL (4.5-11.0)
[2023-04-16 15:04] LABS: Alanine Aminotransferase 40 IU/L (<50); Albumin 4.2 g/dL (3.5-5.0); Albumin Globulin Ratio 1.2 (1.0-2.8); Alkaline Phosphatase 90 U/L (38-126); Aspartate Aminotransferase 44 IU/L (17-59); BUN Creatinine Ratio 15.5 (6-22); Bilirubin Total 0.7 mg/dL (0.2-1.3); Blood Urea Nitrogen 17 mg/dL (9-20); C-Reactive Protein Quant 1.1 mg/dL (<1.0); Calcium 9.7 mg/dL (8.4-10.2); Carbon Dioxide 30 mmol/L (22-32); Chloride 99 mmol/L (98-107); Estimated Glomerular Filt Rate > 60 mL/min (>60); Globulin 3.4 g/dL (1.7-4.1); Glucose 139 mg/dL (80-110); HEMOLYSIS < 15 (0-50); Potassium 4.4 mmol/L (3.4-5.1); Sodium 136 mmol/L (137-145); Total Protein 7.6 g/dL (6.3-8.2)
[2023-04-16 15:10] LABS: Rheumatoid Factor < 8.6 IU/mL (<12.0)
[2023-04-16 15:23] LABS: Erythrocyte Sedimentation Rate 1 MM/HR (0-15)
[2023-04-17 10:13] LABS: Hemoglobin A1C% w Est Avg Glu 5.5 % (4.0-6.0)
[2023-04-21 00:20] LABS: ANA Screen, IFA Negative (.)
== END ==
PROVIDERS: PCP Internal Medicine; Referring Provider Internal Medicine Rheumatology; Visit Provider Internal Medicine Rheumatology
DX: M06.4 Inflammatory polyarthropathy (principal); M19.041 Primary osteoarthritis, right hand
CPT/HCPCS: 36415; 73110; 73130; 80053; 83036; 85025; 85651; 86038; 86140; 86430

== ENCOUNTER → 2024-03-10 10:41 | Outpatient (CLI) | payer MEDICARE, OTHER, SELFPAY ==
--- NOTE | 2024-03-10 | DI.MRI.S_ITS ---
PROCEDURE: MR KNEE LT WO CON INDICATIONS: Unilateral primary osteoarthritis, left knee TECHNIQUE: Noncontrast sagittal PD fast spin echo and T2 fast spin echo with fat saturation, sagittal 3-D FLASH with fat saturation; coronal T1 spin echo and PD fast spin echo with fat saturation, and axial PD fast spin echo with fat saturation through the knee. COMPARISON: None. FINDINGS: Image quality: Excellent. Menisci: Markedly abnormal appearance of the medial meniscus which is degenerated with marked irregularity and absence of the posterior horn. Moderately degenerated anterior horn with marked internal signal, anterolateral displacement and rounded apex. Posterior meniscocapsular separation. The lateral meniscus demonstrates fluid posterior to the posterior horn suggests meniscocapsular separation with mild internal signal suggesting chronic mild degenerative changes anterior and posterior horns without focal tear. Cruciate ligaments: Moderate diffuse increased T2 weighted signal with irregular appearance of the proximal and mid anterior cruciate ligament suggests chronic injury/tear with a few intact fibers. The posterior cruciate ligament is intact. Medial structures: The medial collateral ligament demonstrates moderate surrounding increased T2 weighted signal which may represent acute versus chronic grade 1 injury. Mild increased T2 weighted signal surrounding the distal semimembranosus tendon. Lateral structures: Abnormal signal and thickening suggests acute versus chronic strain/tear of the distal popliteus tendon with surrounding fluid suggesting tenosynovitis. Moderate increased T2 weighted signal of the fibular collateral ligament. The lateral collateral ligament, long and short heads of the biceps femoris tendon appear intact. Anterior structures: Moderate thickening, increased T2 weighted signal suggests chronic injury/strain of the distal quadriceps tendon at its insertion on the superior patella (sagittal series 7 images 15-23). Moderate subcutaneous soft tissue edema anterior to the patella and patellar ligament and patellar retinacula, medial greater than lateral. Moderate nonspecific edema in the infrapatellar fat pad. The patellar tendon appears intact. Bones and cartilage: Moderate to severe degenerative changes with diffuse cartilaginous thinning and near [id number] configuration in the medial compartment. Moderate degenerative changes in the lateral and patellofemoral compartments. Joint space: Moderate knee joint effusion. IMPRESSION: Numerous suspected chronic degenerative changes and sequela of prior injury/strain as discussed above in the medial greater than lateral and patellofemoral compartments. Markedly abnormal degenerated medial meniscus with posterior meniscocapsular separation. Lateral meniscus is intact but demonstrates meniscocapsular separation with chronic mild degenerative changes. Moderate abnormal signal anterior cruciate ligament suggests chronic injury/tear with a few intact fibers. Medial collateral ligament acute versus chronic grade 1 injury. Mild increased signal surrounding the distal semimembranosus tendon. Abnormal signal and thickening suggests acute versus chronic strain/tear of the distal popliteus tendon with surrounding fluid suggesting tenosynovitis. Moderate increased signal of the fibular collateral ligament. Moderate thickening, increased signal suggests chronic injury/strain of the distal quadriceps tendon. Moderate subcutaneous edema anterior to the patella and patellar retinacula, medial greater than lateral. Moderate nonspecific edema in the infrapatellar fat pad. Moderate to severe degenerative changes with diffuse cartilaginous thinning and near [id number]-yx-[id number] configuration in the medial compartment. Moderate degenerative changes in the lateral and patellofemoral compartments. Moderate knee joint effusion. Follow-up is needed. Dictated by: Eddie Del Valle M.D. on 03/11/2024 at 9:32 Approved by: Eddie Del Valle M.D. on 03/11/2024 at 10:15
--- NOTE | 2024-03-10 11:27 | EKG_ITS ---
[address] [address] Test Date: 2024-03-10 Pat Name: Sergio Georges Department: Room: Gender: Male [employer] Consultant: Erika : [id number] Requested By: Order Number: [id number] Reading MD: Osiel Francisco Measurements Intervals [place] Rate: 67 P: 65 DE: 204 QRS: 32 QRSD: 78 T: 52 QT: 380 QTc: 401 Interpretive Statements Sinus rhythm with premature atrial complexes Electronically Signed On 03-11-2024 19:51:21 PDT by Osiel Francisco
[2024-03-10 12:04] LABS: Add Manual Diff / Slide Review NO; Basophils Absolute Auto 0 /uL (0-100); Basophils Percent Auto 0.5 % (0-2); Eosinophils Absolute Auto 200 /uL (0-450); Eosinophils Percent Auto 2.3 % (2-4); Hemoglobin 16.2 g/dL (13.5-17.5); Lymphocytes Absolute Auto 1300 /uL (1100-4500); Lymphocytes Percent Auto 14.8 % (25-40); Mean Corpuscular HGB Conc 33.8 % (30-36); Mean Corpuscular Hemoglobin 33.5 PG (26-34); Mean Corpuscular Volume 99.3 fL (80-100); Monocytes Absolute Auto 700 /uL (0-900); Monocytes Percent Auto 7.8 % (3-14); Neutrophils Absolute Auto 6800 /uL (1500-7000); Neutrophils Percent Auto 74.6 % (50-75); Platelet Count 236 X10^3/uL (150-400); Red Blood Cell Count 4.84 X10^6/uL (4.5-5.9); Red Cell Distribution Width 14.7 % (11.6-14.8); White Blood Cell Count 9.1 X10^3/uL (4.5-11.0)
[2024-03-10 13:02] LABS: Appearance Urine UA Clear; Color Urine UA Yellow; Glucose Urine UA NEGATIVE (Negative); Ketones Urine UA TRACE (NEGATIVE); Protein Urine UA Negative (Negative); pH Urine UA 5.5 (4.5-8.0)
[2024-03-10 13:03] LABS: Bacteria Urine Occasional (0-1); Bilirubin Urine UA Negative (NEGATIVE); Culture Indicated Urine Cult Not Indicated; Leukocyte Esterase Urine UA NEGATIVE (NEGATIVE); Nitrite Urine UA NEGATIVE (Negative); Occult Blood Urine UA Negative (Negative); RBC Urine 0-1/HPF (0-5/HPF); Squamous Epithelial Cell Urine 0-1 /HPF (0-5/HPF); Urine Volume 10mL (spun); Urobilinogen Urine UA 0.2 E.U./dL (0.2); WBC Urine 0-1/HPF (0-5/HPF)
[2024-03-10 13:06] LABS: Alanine Aminotransferase 34 IU/L (<50); Albumin 4.1 g/dL (3.5-5.0); Albumin Globulin Ratio 1.4 (1.0-2.8); Alkaline Phosphatase 80 U/L (38-126); Aspartate Aminotransferase 37 IU/L (17-59); BUN Creatinine Ratio 16.2 (6-22); Bilirubin Total 1.2 mg/dL (0.2-1.3); Blood Urea Nitrogen 16 mg/dL (9-20); Calcium 9.5 mg/dL (8.4-10.2); Carbon Dioxide 22 mmol/L (22-32); Chloride 103 mmol/L (98-107); Estimated Glomerular Filt Rate > 60 mL/min (>60); Globulin 2.9 g/dL (1.7-4.1); Glucose 69 mg/dL (80-110); HEMOLYSIS < 15 (0-50); Sodium 135 mmol/L (137-145); Uric Acid 3.5 mg/dL (3.5-8.5)
[2024-03-10 13:21] LABS: Free T4, Direct Thyroxine 1.32 ng/dL (0.78-2.19)
[2024-03-10 13:34] LABS: Prostate Specific Antigen Scrn 4.58 ng/mL (0.1-4.0); Thyroid Stimulating Hormone 0.948 uIU/mL (0.47-4.68)
== END ==
PROVIDERS: PCP Internal Medicine; Referring Provider Orthopaedic Surgery; Visit Provider Orthopaedic Surgery
DX: Z01.818 Encounter for other preprocedural examination (principal); Z01.812 Encounter for preprocedural laboratory examination; M23.332 Other meniscus derangements, other medial meniscus, left knee; M25.462 Effusion, left knee; M17.12 Unilateral primary osteoarthritis, left knee; M1A.9XX0 Chronic gout, unspecified, without tophus (tophi); Z12.5 Encounter for screening for malignant neoplasm of prostate; I10 Essential (primary) hypertension; R73.9 Hyperglycemia, unspecified; E78.2 Mixed hyperlipidemia; E03.8 Other specified hypothyroidism; E06.3 Autoimmune thyroiditis; M06.00 Rheumatoid arthritis without rheumatoid factor, unspecified site; N39.0 Urinary tract infection, site not specified
CPT/HCPCS: 36415; 73721; 80053; 81001; 83036; 84439; 84443; 84550; 85025; 93005; G0103

== ENCOUNTER → 2024-03-19 12:19 | Outpatient (CLI) | payer MEDICARE, OTHER, SELFPAY ==
--- NOTE | 2024-03-19 12:21 | DI.US.S_ITS ---
PROCEDURE: US ABD AORTA ANEURYSM SCREEN INDICATIONS: aaa TECHNIQUE: Real time scanning was performed of the aorta and iliac arteries, with image documentation. COMPARISON: None. FINDINGS: Aorta: Proximal aortic diameter measures 2.4 x 2 cm. Mid-aorta measures 1.7 x 1.7 cm. Distal aortic diameter is 1.7 x 1.6 cm. Iliac arteries: Right common iliac artery measures 1.4 cm. Left common iliac artery measures 1.3 cm. Incidental note is made of increased liver echogenicity. IMPRESSION: Negative for aneurysm. The liver demonstrates increased echogenicity. This finding is nonspecific, yet it is most commonly attributed to fatty infiltration. Dictated by: Man Ortega M.D. on 03/19/2024 at 13:47 Approved by: Man Ortega M.D. on 03/19/2024 at 13:47
[2024-03-21 10:10] LABS: PSA Free % 30.9 % (.); PSA, Total 2.3 ng/mL (0.0-4.0)
== END ==
PROVIDERS: PCP Internal Medicine; Referring Provider Internal Medicine; Visit Provider Internal Medicine
DX: I71.40 Abdominal aortic aneurysm, without rupture, unspecified (principal); R97.20 Elevated prostate specific antigen [PSA]
CPT/HCPCS: 76706; 84153; 84154

== ENCOUNTER → 2024-10-18 09:57 | Outpatient (CLI) | payer MEDICARE, OTHER, SELFPAY ==
[2024-10-18 11:06] LABS: Alanine Aminotransferase 33 IU/L (<50); Albumin 4.1 g/dL (3.5-5.0); Albumin Globulin Ratio 1.4 (1.0-2.8); Alkaline Phosphatase 70 U/L (38-126); Aspartate Aminotransferase 44 IU/L (17-59); BUN Creatinine Ratio 16.7 (6-22); Bilirubin Total 1.4 mg/dL (0.2-1.3); Blood Urea Nitrogen 14 mg/dL (9-20); Calcium 9.1 mg/dL (8.4-10.2); Carbon Dioxide 28 mmol/L (22-32); Chloride 103 mmol/L (98-107); Cholesterol 171 mg/dL (140-199); Estimated Glomerular Filt Rate > 60 mL/min (>60); Globulin 2.9 g/dL (1.7-4.1); Glucose 78 mg/dL (70-99); HDL Cholesterol 58 mg/dL (40-60); HEMOLYSIS < 15 (0-50); LDL Cholesterol Calculated 93 mg/dL (<100); Potassium 4.4 mmol/L (3.4-5.1); Sodium 137 mmol/L (137-145); Triglycerides 100 mg/dL (35-150); Uric Acid 2.7 mg/dL (3.5-8.5)
[2024-10-18 11:22] LABS: Free T3, Triiodothyronine Free 4.67 pg/mL (2.77-5.27); Free T4, Direct Thyroxine 1.32 ng/dL (0.78-2.19)
[2024-10-18 11:34] LABS: Prostate Specific Antigen 1.58 ng/mL (0.10-4.00)
[2024-10-18 11:35] LABS: Thyroid Stimulating Hormone 0.277 uIU/mL (0.47-4.68)
== END ==
PROVIDERS: PCP Internal Medicine; Referring Provider Internal Medicine; Visit Provider Internal Medicine
DX: I10 Essential (primary) hypertension (principal); R97.20 Elevated prostate specific antigen [PSA]; M1A.9XX0 Chronic gout, unspecified, without tophus (tophi); E03.9 Hypothyroidism, unspecified
CPT/HCPCS: 36415; 80053; 80061; 84153; 84439; 84443; 84481; 84550

== ENCOUNTER 2025-03-10 09:54 | Day surgery (SDC) | payer MEDICARE, OTHER, SELFPAY ==
--- NOTE | 2025-03-10 10:19 | PM.HP.IH.1 ---
History of Present Illness History of Present Illness Date Patient Seen: 03/10/25 Time Patient Seen: 10:19 Chief complaint: SDC Narrative: Sergio is a 71-year-old man who had a colonoscopy in 2019 and 2 small tubular adenomas were recovered. No first-degree members colon cancer. [facility] Medical History (Updated 10/22/24 @ 11:25 by Deondre Santos MD) Glaucoma Systolic murmur Elevated PSA COVID-19 (~03/2022) Seronegative rheumatoid arthritis Erectile dysfunction Jose Francisco's thyroiditis History of adenomatous polyp of colon Rosacea Polymyalgia rheumatica BPH w urinary obs/LUTS Hypogonadism in male Mixed hyperlipidemia HTN (hypertension) Gout Hypothyroid Surgical History [place] teeth removed (05/07/23) Status post cataract extraction (~2020) History of umbilical hernia repair (~2011) Hx of shoulder surgery History of knee replacement Social History household members: spouse and none alcohol intake: current Meds Home Medications and Allergies Home Medications ?Medication ?Instructions ?Recorded ?Confirmed ?Type clobetasol 0.05 % scalp solution 1 applic topical BID #150 mL 03/15/24 10/22/24 Rx levothyroxine 125 mcg tablet 125 mcg PO DAILY #90 tabs 08/30/24 10/22/24 Rx (Synthroid) terazosin 5 mg capsule 5 mg PO BID #180 caps 08/30/24 10/22/24 Rx timolol 0.5 % eye drops drp EYE-RIGHT DAILY 10/22/24 10/22/24 History clobetasol 0.05 % topical cream 1 applic topical BID 2 weeks #60 12/07/24 Rx grams sildenafil 100 mg tablet 100 mg PO DAILY PRN sexual 12/07/24 Rx activity #88 tabs Carepoint luer Lock syringe with #25 ea 02/22/25 Rx needle allopurinol 300 mg tablet 300 mg PO DAILY #60 tabs 02/22/25 Rx safety needles 18 gauge x 1 #25 ea 02/22/25 Rx (SurGuard2 Safety) safety needles 25 gauge x 1 #25 ea 02/22/25 Rx testosterone cypionate 200 mg/mL See Rx Instructions .Route 02/22/25 Rx intramuscular oil .COMPLEX #10 mL sodium,potassium,mag sulfates 17.5 See Rx Instructions PO .COMPLEX 02/23/25 Rx gram-3.13 gram-1.6 gram oral soln #354 mL (Suprep Bowel Prep Kit) Allergies Allergy/AdvReac Type Severity Reaction Status Date / Time lisinopril Allergy Rash Verified 03/10/25 10:06 Sulfa (Sulfonamide Allergy Rash Verified 03/10/25 10:06 Antibiotics) Exam Const General: healthy appearing Assessment & Plan Assessment and plan (1) History of adenomatous polyp of colon: Status: Inactive Plan Colonoscopy Time-Based Coding :: [TOTAL MINUTES] spent with patient and on the chart (including review of chart, obtaining history, exam, reviewing outside data, placing orders, documenting exam and treatment plan, and counseling patient) on [DATE]. [employer] Specialist Document charge(s): No
[2025-03-10 10:23] VITALS: BP 133/85; PULSE 84; RESP 17; TEMP 36.3; O2SAT 96
[2025-03-10] MEDS: LACTATED RINGERS 1,000 ML 42 ML IV (10:27)
[2025-03-10 10:55] VITALS: BP 94/58; PULSE 82; RESP 16; TEMP 36.2; O2SAT 95
--- NOTE | 2025-03-10 10:56 | PM.OP.COLON ---
Operative Date/Time/Diagnoses Date of procedure: 03/10/25 Time of procedure: 10:56 Pre-op diagnosis: History of adenomatous colon polyps Post-op diagnosis: same Procedure & Clinicians Study performed: Colonoscopy Same procedure(s) as scheduled: Yes Surgeon: Gagandeep Welsh Anesthesia Type: MAC +/- Procedure Notes Procedure in detail: Surgeon: Gagandeep Welsh MD Anesthesia: Carmela Rios CRNA Procedure: The patient was brought to the endoscopy suite, placed in left lateral decubitus position. The patient was connected to monitoring devices. A time-out was performed. Sedation was administered. Once the patient was adequately sedated, a digital rectal exam was performed and was normal. The scope was then inserted and advanced to the cecum where the appendiceal orifice was identified and photographed. The scope was then slowly withdrawn over greater than 6 minutes. The mucosa was thoroughly inspected. No abnormalities were found. The scope was retroflexed in the rectum. The scope was straightened and removed. The patient was awakened and brought to recovery. Scope withdrawal time: 7 minutes Sedation time: 17 minutes EBL: 0 Findings: Normal colon Post-procedure Plan for aftercare: Can stop colon cancer screening now Disposition: PACU
[2025-03-10 11:00] VITALS: BP 99/62; PULSE 78; RESP 24; O2SAT 96
[2025-03-10 11:05] VITALS: BP 98/63; PULSE 81; RESP 21; O2SAT 96
--- NOTE | 2025-03-10 11:23 | SUR.PHASEII ---
escorted to cafeteria with [place], by Irene HODGES, pt declined w/c
== END 2025-03-10 11:22 | disposition home or self-care (01) ==
PROVIDERS: PCP Internal Medicine; Referring Provider Internal Medicine; Visit Provider Surgery
PROC: 0DJD8ZZ Inspection of Lower Intestinal Tract, Via Natural or Artificial Opening Endoscopic (ICD-10-PCS; CPT 45378; principal; 2025-03-10 10:45)
DX: Z12.11 Encounter for screening for malignant neoplasm of colon (principal); Z86.0101 Personal history of adenomatous and serrated colon polyps
CPT/HCPCS: G0105; J2704